=== PATIENT | female | born 1985 | race Caucasian/White ===

== ENCOUNTER 2018-04-16 16:41 | Outpatient (REF) | payer MEDICARE, MEDICAID, SELFPAY | END 2018-04-16 17:01 | LOC: NCHCN 16:41 | PROVIDERS: PCP Nurse Practitioner Family; Visit Provider Nurse Practitioner Family | DX: R30.0 Dysuria (principal) | CPT/HCPCS: 87086 ==

== ENCOUNTER 2024-06-04 10:04 | Outpatient (REF) | payer MEDICARE, MEDICAID, SELFPAY ==
--- NOTE | 2024-06-04 09:30 | SKI_PTH ---
PATIENT: Samra Huber LOC: [facility] U#:[id number] AGE/SX: 39/F ROOM: RE06/04/[address]: Orin Collins : 1985 BED: DIS: 06/04/2024 SPEC #: [id number] RECD: 06/04/24 14:12 STATUS: LIANNE WALTON #: [id number] NEETU: 06/04/24 09:[address]: Orin Sanz DEPT: Surgical Specimen RECD BY: Conchita Nair Tissues: 1 - SKIN BIOPSY(SHAVE/PUNCH) Procedures: SKIN LEVEL 4 Comments: [id number]
== END 2024-06-04 10:05 | disposition home or self-care (01) ==
LOC: NCHCN 10:04
PROVIDERS: PCP Nurse Practitioner Family; Visit Provider Nurse Practitioner Family
DX: D22.5 Melanocytic nevi of trunk (principal)
CPT/HCPCS: 88305

== ENCOUNTER 2025-04-26 15:22 | Outpatient (REF) | payer MEDICARE, MEDICAID, SELFPAY ==
[2025-04-26 21:46] LABS: HCT 43.8 % (36.0-46.0); HGB 13.7 g/dL (11.2-15.7); MCH 29.0 pg (27.0-33.0); MCHC 31.3 % (32.0-36.0); MCV 93 fL (80-95); MPV 10.2 fL (8.0-11.0); Platelet Count 224 10^3/uL (130-400); RBC 4.73 10^6/uL (3.93-5.22); RDW 12.4 % (11.7-14.6); RDW-SD 42.2 fL; WBC 5.01 10^3/uL (4.4-10.8)
[2025-04-26 21:59] LABS: Hemoglobin A1C 4.7 % (<5.7)
[2025-04-26 22:01] LABS: TSH 1.57 uIU/mL (0.55-4.78)
[2025-04-26 22:07] LABS: ALT 10 U/L (10-49); AST 19 U/L (<34); Albumin 4.6 g/dL (3.2-5.0); Alkaline Phosphatase 50 U/L (46-116); Anion Gap 8.6 mmol/L (3-11); BUN 11 mg/dL (9-23); Bilirubin, Total 0.3 mg/dL (0.2-1.2); CO2 29.4 mmol/L (20.0-31.0); Calcium 9.1 mg/dL (8.3-10.6); Chloride 108 mmol/L (98-107); Cholesterol 174 mg/dL (<200); Glucose 78 mg/dL (74-106); HDL Cholesterol 66 mg/dL (>40); Potassium 4.1 mmol/L (3.5-5.1); Sodium 146 mmol/L (136-145); Total Protein 7.3 g/dL (5.7-8.2)
== END 2025-04-26 15:23 | disposition home or self-care (01) ==
LOC: NCHCN 15:22
PROVIDERS: PCP Nurse Practitioner Family; Visit Provider Nurse Practitioner Family
DX: R53.82 Chronic fatigue, unspecified (principal); Z13.1 Encounter for screening for diabetes mellitus; Z13.220 Encounter for screening for lipoid disorders
CPT/HCPCS: 80053; 80061; 85027; 83036; 84443